=== PATIENT | female | born 1965 | race Caucasian/White ===

== ENCOUNTER 2018-11-10 13:01 | Emergency (ER) | payer OTHER ==
[~2018-11-10] VITALS: Ht 165.1 cm; Wt 99.8 kg
[2018-11-10] MEDS ORDERED: METOPROLOL SUCC25 MG (14:05)
[2018-11-10] MEDS ORDERED: ASA81 MG (14:05)
[2018-11-10] MEDS ORDERED: PEPCID20 MG (14:05)
[2018-11-10] MEDS ORDERED: ALDACTONE50 MG (14:05)
[2018-11-10] MEDS ORDERED: ATORVASTATIN CA10 MG (14:06)
== END 2018-11-10 20:33 | disposition home or self-care (01) ==
LOC: ER 13:01 → CPU-OBS 15:32 → ER 20:33
DX: R07.89 Other chest pain (principal); R55 Syncope and collapse
CPT/HCPCS: 70450; G0378; G0379; 93005; 82805; 36600